=== PATIENT | female | born 1975 | race Caucasian/White ===

== ENCOUNTER 2021-01-09 14:30 | Outpatient (CLI) | payer OTHER ==
[~2021-01-09 14:30] MED LIST: ENDOMETRIN100 MG/INS VG
== END 2021-01-09 14:45 | disposition home or self-care (01) ==
LOC: PPH VACUNA 14:30
PROVIDERS: ATTEND Emergency Medicine Pediatric Emergency Medicine
DX: Z23 Encounter for immunization (principal)